=== PATIENT | female | born 1985 | race African-American/Black ===

== ENCOUNTER 2017-09-29 20:36 | Emergency (ER) | payer MEDICAID ==
[~2017-09-29] VITALS: Ht 185.4 cm; Wt 129.5 kg
[~2017-09-29 20:36] MED LIST: AMBIEN 10MG10 MG PO; ANTIVERT; ATARAX25 MG PO; ATIVAN 0.50.5 MG/TAB PO; BENZTROPINE2 MG PO; COUMADIN; DEPO-PROVER150 MG/M1 IM; GEODON PO; HALDOL5 MG PO; LITHIUM 60600 MG/CAP PO; LORTAB 5/500 501 TAB PO; NEXIUM 20MG CAP20 MG PO; NO HOME MEDICATIONS; PEPCID20 MG PO; PERCOCET 5/321 UDTAB PO; PERCOCET 500 MG1 TAB PO; PHENERGAN 25 TA25 MG PO; POTASSIUM; PREVACID 30MG30 MG PO; SEROQUEL; SEROQUEL300 MG PO; TAMIFLU 75MG75 MG PO; TEGRETOL; TEGRETOL PO; TEMAZEPAM PO; TRAMADOL50 MG PO; TRILEPTAL; ULTRAM50 MG PO; WHELCHOL; ZOFRAN 4MG T4 MG/TAB PO
[2017-09-29 20:41] VITALS: TEMP 97.9
[2017-09-29] MEDS ORDERED: PREDNISONE20 MG PO (21:08)
[2017-09-29] MEDS ORDERED: EPIPEN 2-PAK1 MG/ML IM (21:08)
[2017-09-30 00:23] VITALS: BP 136/86; PULSE 78
== END 2017-09-30 00:34 | disposition home or self-care (01) ==
LOC: COL.ER 20:36
DX: T78.1XXA Other adverse food reactions, not elsewhere classified, initial encounter (principal)
CPT/HCPCS: J1200; J7030; J7512

== ENCOUNTER 2017-09-30 10:33 | Emergency (ER) | payer MEDICAID ==
[~2017-09-30] VITALS: Ht 182.9 cm; Wt 126.8 kg
[~2017-09-30 10:33] MED LIST changes: +EPIPEN 2-PAK1 MG/ML IM; +PREDNISONE20 MG PO
[2017-09-30 13:07] VITALS: BP 128/88; PULSE 88
== END 2017-09-30 13:14 | disposition home or self-care (01) ==
LOC: COL.ER 10:33
DX: T78.1XXA Other adverse food reactions, not elsewhere classified, initial encounter (principal); F17.210 Nicotine dependence, cigarettes, uncomplicated
CPT/HCPCS: J0171; J1200; J2930